=== PATIENT | male | born 1985 | race Caucasian/White ===

== ENCOUNTER 2022-02-17 15:44 | Outpatient (CLI) | payer OTHER, SELFPAY ==
[2022-02-17 20:18] LABS: Chloride* 103 mmol/L (96-114); Sodium* 139 mmol/L (135-149)
[2022-02-17 20:20] LABS: Cholesterol* 197 mg/dL (90-199); Creatinine* 0.9 mg/dL (0.5-1.5); Estimated Glomerular Filt Rate 112 ml/min
[2022-02-17 20:21] LABS: Blood Urea Nitrogen* 13 mg/dL (5-24); Calcium* 9.4 mg/dL (8.4-10.6); Carbon Dioxide* 30 mmol/L (20-32); Glucose* 91 mg/dL (60-115); HDL Cholesterol* 64 mg/dL (>=40); LDL Cholesterol Calculated 119 mg/dL (<100); Triglycerides* 71 mg/dL (40-149)
== END 2022-02-17 15:45 | disposition home or self-care (01) ==
PROVIDERS: PCP Family Medicine; Visit Provider Family Medicine
DX: Z00.00 Encounter for general adult medical examination without abnormal findings (principal); R06.83 Snoring; Z13.6 Encounter for screening for cardiovascular disorders
CPT/HCPCS: 80048; 80061

== ENCOUNTER 2022-03-18 19:46 | Outpatient (CLI) | payer OTHER, SELFPAY ==
--- NOTE | 2022-04-01 11:52 | W.PM.SLEEP ---
Sleep Study Details Details Interpreting Provider: Scott Becker MD Date of Sleep Study: 04/18/22 Sleep Study Details: STUDY TYPE:? Home ? BMI:? 28.6 ORDERING PROVIDER:? Shawanda INDICATION:? Concerns about sleep apnea ? SLEEP SUMMARY:? 170 minutes due to portions of tracing without oxygen saturation data RESPIRATORY SUMMARY:? AHI 6.4, supine AHI 8, left lateral AHI 4.2. Low oxygen was 91 PERIODIC LIMB MOVEMENTS OF SLEEP:? Not recorded CARDIAC:? 55-92, average 66.4 beats per minute. Snore summary 18.2% IMPRESSION:? Study limited by large portion of study done without oxygen saturation data. This study demonstrates mild obstructive sleep apnea with supine position dependency RECOMMENDATION: Treatment options would include AutoSet CPAP at a pressure of 4-17, dental appliance and/or airway expansion surgery. Would favor CPAP versus dental appliance.
== END 2022-03-18 19:47 | disposition home or self-care (01) ==
PROVIDERS: PCP Family Medicine; Visit Provider Family Medicine
DX: G47.33 Obstructive sleep apnea (adult) (pediatric) (principal)
CPT/HCPCS: 95806